=== PATIENT | male | born 1990 | race Caucasian/White ===

== ENCOUNTER 2023-07-11 08:38 | Emergency (ER) | payer MEDICAID, SELFPAY ==
[2023-07-11 08:39] VITALS: BP 129/77; PULSE 77; RESP 16; TEMP 35.7; O2SAT 100; BMI 26.6
--- NOTE | 2023-07-11 08:59 | EDS_ITS ---
HPI History of Present Illness Chief Complaint: Cough Detail of Chief Complaint: Patient has to plaints, cough and penile lesions Informant: patient Onset/Context/Timing Onset: Yesterday (First noted lesions) and Days (Cough started 5 days ago) Context: Sudden Onset Timing: Continuous Quality: Upper respiratory tract infectious symptoms and lesions head of penis Location: Respiratory and had a penis Current Severity: Mild Maximum Severity: Moderate Worsened by: Penile pain worse with walking Relieved by: Nothing for either Associated Symptoms Associated Symptoms: No constitutional symptoms. No myalgias arthralgias. No joint swelling. Narrative Narrative: Is a 32-year-old male who has been with no new sexual partners. He is boyce. He does report history of syphilis, gonorrhea, chlamydia. He denies history of herpes. He states that the sores on his penis cause some discomfort with walking. He bought a cream to use for diaper rash that begins with an M. He does not know what type of cream he put on his penis. He denies scrotal pain or swelling. He denies penile discharge. He denies groin pain or swelling. He denies fever, chills night sweats. He denies photophobia or any visual symptoms. He denies myalgias, arthralgias or joint swelling. He denies rash in any other part of his body. Patient denies headache. He denies auditory symptoms. He does report congestion and mild sore throat. He had a cough for 5 days. The cough is nonproductive. He denies history of smoking. Prior similar symptoms: No Recent Illness/Hospitalization: No [facility] Medical History (Updated 07/11/23 @ 09:[address] Nelson Lal MD) Chlamydia Gonorrhea Syphilis Home Medications nystatin 100,000 unit/gram topical powder 1 applic topical TID #30 grams 3 [Rx Last Taken Unknown] Allergy/AdvReac Type Severity Reaction Status Date / Time Penicillins Allergy Intermediate Other Verified 07/11/23 08:40 Surgical History no surgical history no surgical history Social History (Updated 07/11/23 @ 09:[address] Nelson Lal MD) household members: other Smoking Status: Never smoker ROS ROS ED Constitutional Constitutional ED: Denies chills, fever(s), subjective, sweats or weight loss Eyes Eyes: Denies blurry vision, change in vision or diplopia ENT ENT ED: Reports rhinorrhea; Denies ear pain or sore throat Cardiovascular Cardiovascular: Denies chest pain, orthopnea, palpitations or paroxysmal nocturnal dyspnea Respiratory/Chest Respiratory/Chest: Reports cough and sputum; Denies dyspnea, dyspnea on exertion, orthopnea or paroxysmal nocturnal dyspnea Gastrointestinal Gastrointestinal: Denies abdominal pain, nausea or vomiting Genitourinary Genitourinary ED: Reports other Details: Documented HPI narrative ; Denies dysuria, hematuria or urinary frequency Musculoskeletal Musculoskeletal: Denies arthralgias or myalgias Integumentary Reports rash Neurologic Neurologic: Denies headache(s) Hematologic/Lymphatic Hematologic/Lymphatic: Reports systems reviewed and no addt'l complaints, except as documented EXAM Physical Exam Const Vital Signs: 07/11/23 08:39 Temperature 96.2 F L Temperature Source Temporal Pulse Rate 77 Respiratory Rate 16 Blood Pressure 129/77 H Blood Pressure Mean 94 Pulse Ox 100 Oxygen Delivery Method Room Air Positive well nourished and well developed General Appearance ED: well developed and NAD; Negative for pallor HEENT Reports moist mucous membranes HEENT Narrative: Head is atraumatic and normocephalic. Posterior pharynx is unremarkable. Eyes PERRL and EOMs intact bilaterally General Eye ED: Negative for pale conjunctiva or scleral icterus Chest Wall inspection of chest normal and palpation of chest normal Resp normal respiratory effort and clear to auscultation bilaterally Cardio regular rate, regular rhythm, S1 normal heart sound, S2 normal heart sound and no murmurs GI normal to inspection, nondistended, normoactive bowel sounds, non-tender, non- distended and no masses GI Narrative: There is no rebecca lymphadenopathy. Narrative: Circumcised male. There is inflammatory rash noted the head of the penis and on the shaft left side. There is no blisters or ulcers noted. There is no urethral discharge. Testes are descended bilaterally. There is no inguinal lymphadenopathy. There is no swelling of the scrotum. Neuro oriented x3 and CN's II-XII intact bilaterally Sensorium / Orientation: alert Psych mental status grossly normal Skin no wounds and skin turgor normal General Skin Exam: Negative for jaundice or pallor MDM MDM MDM Narrative Medical decision making narrative: He was told he has a viral upper respiratory infection. Since vital signs are normal and there is no indication for laboratory studies or chest x-ray. With regards to his penile lesion this may represent a fungal infection. Difficult to say with certainty since there is cream/ointment on the shaft and head of the penis. There is inflammatory changes consistent with a contact dermatitis. There is no blistering noted. There is no ulcerations noted. Since patient does not have penile discharge and has no urinary symptoms he was not tested for GC or chlamydia. Will treat with Diflucan and nystatin powder since there is drainage from the head of the penis. History & Record Review Discussion w/independent historian: Patient and Friend Discharge Plan Triage Chief Complaint: Cough Other Complaint: Male Pain/Injury ED Provider: Nelson Lal Dx/Rx/DC Orders Clinical Impression: Respiratory tract congestion with cough, Sariah infection of genital region, Contact dermatitis Instructions: ED Sariah Skin Infection (Adult), ED URI, Viral, No Abx (Adult) Prescriptions: New nystatin 100,000 unit/gram powder 1 applic topical TID Qty: 30 0RF Stand Alone Forms: Work Status Form Primary Care Provider: NOT,DEFINED Referrals: Ludivina Fry [Non-Staff] - 1 Week if not improving NOT,DEFINED [Primary Care Provider] - Disposition Disposition: Home, Self Care
[2023-07-11] MEDS: Fluconazole 100 MG Tablet 200 MG PO (09:21)
== END 2023-07-11 09:40 | disposition home or self-care (01) ==
LOC: ED 12:03
PROVIDERS: Emergency Provider Emergency Medicine; Visit Provider Emergency Medicine
DX: J02.9 Acute pharyngitis, unspecified (principal); L22 Diaper dermatitis; N48.89 Other specified disorders of penis; R05.9 Cough, unspecified; B37.2 Candidiasis of skin and nail
CPT/HCPCS: 99283